=== PATIENT | male | born 1970 | race Caucasian/White ===

== ENCOUNTER 2021-06-02 16:23 | Emergency (ER) | payer BC, OTHER, SELFPAY ==
[~2021-06-02] VITALS: Ht 182.9 cm; Wt 79.4 kg
[2021-06-02 16:32] VITALS: BP_SYST 134
--- NOTE | 2021-06-02 16:35 | NUR ---
PT IN WR, EKG-NSR,OK TO WAIT PER DR PENA, CHELSEY JOE RN AWARE.
--- NOTE | 2021-06-02 17:01 | NUR ---
PT NOTICED TO BE ON FLOOR ON TOP OF MATTRESS FROM [facility], CN AWARE.
[2021-06-02 19:07] LABS: BASOPHILS % (AUTO) 0.4 % (0.0-2.0); EOSINOPHILS # (AUTO) 0.1 K/uL (0.0-0.4); EOSINOPHILS % (AUTO) 0.5 % (0.0-4.0); HEMATOCRIT 39.7 % (36-54); HEMOGLOBIN 13.6 g/dL (14.0-18.0); LYMPHOCYTES % (AUTO) 7.5 % (20.5-51.5); MEAN CORPUSCULAR HEMOGLOBIN 29 pg (27-31); MEAN CORPUSCULAR HGB CONC 34 % (32-36); MEAN CORPUSCULAR VOLUME 85 fL (79.0-98.0); MONOCYTES # (AUTO) 0.8 K/uL (0.0-1.0); MONOCYTES % (AUTO) 5.9 % (1.7-9.3); NEUTROPHILS # (AUTO) 11.5 K/uL (1.8-7.7); NEUTROPHILS % (AUTO) 85.7 % (40.0-70.0); PLATELET COUNT (AUTO) 519 K/uL (130-430); RED BLOOD CELL COUNT(AUTO) 4.68 MIL/uL (4.2-6.2); RED CELL DISTRIBUTION WIDTH 13.5 % (9.0-15.0); WHITE BLOOD COUNT (AUTO) 13.4 K/uL (4.8-10.8)
[2021-06-02] MEDS ORDERED: KETOROLAC TROMETHAMINE 60 MG/2 ML VIAL IM ONE (19:30)
[2021-06-02 19:31] LABS: CALCIUM 9.2 mg/dL (8.4-11.0); CREATININE 0.87 mg/dL (0.55-1.30); POTASSIUM 4.5 mmol/L (3.5-5.1)
--- NOTE | 2021-06-02 19:36 | NUR ---
KENRICK SARGENT CN FOR NOC MADE AWARE THAT PT CONT TO BE IN WR, NO ROOM IN ER AT THIS TIME.
[2021-06-02 19:40] LABS: ALBUMIN 3.1 g/dL (3.4-4.8); TOTAL BILIRUBIN 0.1 mg/dL (0.0-1.0)
[2021-06-02] MEDS ORDERED: IBUP-1969 PO (21:21)
--- NOTE | 2021-06-02 21:28 | NUR ---
PT TO [facility] 1, IV PLACED TO RT AC. [place] FOR CTA. DR RAM MADE AWARE.
--- NOTE | 2021-06-02 22:41 | NUR ---
PT TO CT FOR CTA.
--- NOTE | 2021-06-02 23:39 | NUR ---
Swabbed for COVID. Sent to the lab.
--- NOTE | 2021-06-03 02:00 | NUR ---
Patient resting quietly. No acute distress noted. Vital signs within normal range.
[2021-06-03] MEDS ORDERED: HYDROcodone/ACETAMIN 5-325 MG TAB (NORCO/ VICODIN) PO ONE (03:00)
[2021-06-03 03:40] VITALS: BP_SYST 122
--- NOTE | 2021-06-03 03:40 | NUR ---
Patient given written and verbal discharge instructions and verbalizes understanding. ER MD discussed with patient the results and treatment provided. Patient in stable condition. ID arm band removed. No Rx given. Patient educated on pain management and to follow up with PMD. Pain Scale 3/10. Opportunity for questions provided and answered.
== END 2021-06-03 03:40 | disposition home or self-care (01) ==
LOC: SED 16:23
DX: R07.89 Other chest pain (principal); Z79.899 Other long term (current) drug therapy; Z20.822 Contact with and (suspected) exposure to COVID-19
CPT/HCPCS: 36415; 71045; 71275; 76376; 80053; 83880; 84484; 85025; 85379; 87426; 93005; 96372; 99285; J1885; Q9967

== ENCOUNTER 2021-08-21 14:46 | Emergency (ER) | payer BC, OTHER ==
[~2021-08-21] VITALS: Ht 182.9 cm; Wt 81.6 kg
[~2021-08-21 14:46] MED LIST: IBUP-1969 PO
[2021-08-21 14:56] VITALS: BP_SYST 138
[2021-08-21 15:49] LABS: CALCIUM 9.6 mg/dL (8.4-11.0); CREATININE 1.06 mg/dL (0.55-1.30); POTASSIUM 4.1 mmol/L (3.5-5.1)
[2021-08-21 15:55] LABS: TOTAL BILIRUBIN 0.3 mg/dL (0.0-1.0)
[2021-08-21 16:08] LABS: BASOPHILS # (AUTO) 0.1 K/uL (0.0-0.2); BASOPHILS % (AUTO) 1.7 % (0.0-2.0); EOSINOPHILS # (AUTO) 0.1 K/uL (0.0-0.4); HEMATOCRIT 39.4 % (36-54); HEMOGLOBIN 13.1 g/dL (14.0-18.0); LYMPHOCYTES # (AUTO) 1.1 K/uL (1.0-5.5); LYMPHOCYTES % (AUTO) 23.1 % (20.5-51.5); MEAN CORPUSCULAR HEMOGLOBIN 29 pg (27-31); MEAN CORPUSCULAR HGB CONC 33 % (32-36); MEAN CORPUSCULAR VOLUME 86 fL (79.0-98.0); MONOCYTES # (AUTO) 0.6 K/uL (0.0-1.0); MONOCYTES % (AUTO) 12.9 % (1.7-9.3); NEUTROPHILS # (AUTO) 2.7 K/uL (1.8-7.7); NEUTROPHILS % (AUTO) 59.3 % (40.0-70.0); PLATELET COUNT (AUTO) 183 K/uL (130-430); RED BLOOD CELL COUNT(AUTO) 4.58 MIL/uL (4.2-6.2); RED CELL DISTRIBUTION WIDTH 15.2 % (9.0-15.0); WHITE BLOOD COUNT (AUTO) 4.6 K/uL (4.8-10.8)
[2021-08-21 17:13] LABS: BILIRUBIN,URINE NEGATIVE (NEGATIVE); BLOOD, URINE NEGATIVE (NEGATIVE); CLARITY/URINE CLEAR (CLEAR); COLOR,URINE YELLOW (YELLOW); GLUCOSE,URINE NEGATIVE (NEGATIVE); KETONES,URINE NEGATIVE (NEGATIVE); LEUKOCYTE ESTERASE ,URINE NEGATIVE (NEGATIVE); NITRITE, URINE NEGATIVE (NEGATIVE); PH,URINE 6.5 (5.0-8.0); PROTEIN URINE NEGATIVE (NEGATIVE); UROBILINOGEN,URINE 0.2 (0.2-1.0)
[2021-08-21] MEDS ORDERED: LIDO1ADH22 TP (18:26)
[2021-08-21] MEDS ORDERED: ACET-2634 PO (18:26)
[2021-08-21 18:31] VITALS: BP_SYST 138
== END 2021-08-21 18:31 | disposition home or self-care (01) ==
LOC: SED 14:46
DX: R30.0 Dysuria (principal); M54.50 Low back pain, unspecified; Z79.899 Other long term (current) drug therapy; Z20.822 Contact with and (suspected) exposure to COVID-19
CPT/HCPCS: 36415; 80053; 81003; 83605; 83690; 85025; 87040; 87086; 99283

== ENCOUNTER 2022-06-24 18:43 | Emergency (ER) | payer BC, OTHER ==
[~2022-06-24] VITALS: Ht 182.9 cm; Wt 83.9 kg
[~2022-06-24 18:43] MED LIST changes: +ACET-2634 PO; +LIDO1ADH22 TP
[2022-06-24 19:05] VITALS: BP_SYST 148
--- NOTE | 2022-06-24 20:14 | NUR ---
CALLED PT X2, NO ANSWER
--- NOTE | 2022-06-24 20:30 | NUR ---
DR. VIERA IN WAITING ROOM CALLING PATIENT. NO ANSWER.
--- NOTE | 2022-06-24 20:43 | NUR ---
PATIENT CALLED FOR PLACEMENT. NO ANSWER. PATIENT LWBS
== END 2022-06-24 20:43 | disposition left against medical advice (07) ==
LOC: SED 18:43
DX: G43.909 Migraine, unspecified, not intractable, without status migrainosus (principal); Z53.21 Procedure and treatment not carried out due to patient leaving prior to being seen by health care provider